=== PATIENT | male | born 2000 | race Caucasian/White ===

== ENCOUNTER 2022-07-23 11:40 | Emergency (ER) | payer BC, SELFPAY ==
[2022-07-23 11:40] VITALS: BP 147/85; PULSE 94; RESP 18; TEMP 36.8; O2SAT 96; BMI 43.0
--- NOTE | 2022-07-23 12:23 | EXP.UTC ---
Discharge Plan Disposition Patient Disposition: Home, Self-Care Condition: Good Prescriptions Prescriptions: New cephalexin [cephalexin] 500 mg capsule 500 mg PO Q6H 10 Days Qty: 40 0RF methylprednisolone 4 mg Tablets,Dose Pack 4 mg PO DIRECTED Qty: 21 0RF triamcinolone acetonide 0.025 % cream 1 applic topical BID PRN (Reason: itching) Qty: 80 0RF No Action ondansetron HCl 4 mg tablet 4 mg PO TID PRN (Reason: nausea and vomiting) 5 Days Qty: 15 0RF Referrals Follow up/Referrals: Provider,Referral, MD [Primary Care Provider] - See instructions Activity Restrictions/Add. Instructions Additional Instructions/Restrictions: Avoid contact with the offending substance (poison katlyn). Don't put the topical steroids (triamcinolone) on your face or your groin. Follow up with your regular doctor. GO TO THE ER FOR ANY WORSENING SYMPTOMS OR CONCERNS Clinical Impressions Clinical Impression: Contact dermatitis, Cellulitis, Sinusitis Instructions Patient Instructions: Sinusitis, Cellulitis, DI for Sinusitis Discharge ED Provider: Ortega Villegas [facility] [place] General Stated complaint: Congestion, rash on LT arm and stomach Mode of Arrival: Ambulatory Source of Information: Patient Limitations: No Limitations Time Seen by Provider: 07/23/22 12:25 Description of Symptoms (Recalled from Triage Doc. by RN): c/o left arm rash and lower abdomen rash for one week with a possible sinus infection HEENT Symptoms (Recalled from RN notes): Yes Resp Symptoms (Recalled from RN notes): No Skin Symptoms (Recalled from RN notes): Yes MS Symptoms (Recalled from RN notes): No Functional Status (Recalled from RN notes): na History of Present Illness Provider Complaint: He states that he has 2 different complaints today. He is having sinus congestion and a sore throat for the past 2 days. He also has a poison katlyn rash on his bilateral arms and abdomen. This began several days ago and seems to be getting worse. He denies any fever or chills. Related Data Previous Rx's Medication Instructions Recorded ondansetron HCl 4 mg tablet 4 mg PO TID PRN nausea and 01/06/19 vomiting 5 days #15 tabs cephalexin 500 mg capsule 500 mg PO Q6H 10 days #40 caps 07/23/22 methylprednisolone 4 mg tablets in 4 mg PO DIRECTED #21 tabs 07/23/22 a dose pack triamcinolone acetonide 0.025 % 1 applic topical BID PRN itching 07/23/22 topical cream #80 grams Allergies Allergy/AdvReac Type Severity Reaction Status Date / Time Penicillins Allergy Verified 01/06/19 19:53 Worker's Comp Is this a Worker's Comp case?: No PFSH PFSH Social History Smoking Status: Never smoker alcohol intake: never current occupational status: employed Travel in the last 8 weeks: None household members: family housing: house ROS Obtained: Yes All systems reviewed & no additional complaints except as documented Constitutional Constitutional: Reports system reviewed and no additional complaints, except as documented, Denies chills and Denies fever(s) Eyes Eyes: Denies eye discharge ENT Ears, Nose, Mouth, and Throat: Denies dysphagia, Denies sore throat and Denies throat swelling Cardiovascular Cardiovascular: Denies chest pain and Denies dyspnea Respiratory Respiratory: Denies chest congestion, Denies cough and Denies dyspnea Gastrointestinal Gastrointestingal: Denies abdominal pain, constipation, diarrhea, dysphagia, nausea or vomiting Musculoskeletal Musculoskeletal: Denies arthralgias Integumentary/Breasts Skin/Breast: Reports rash Neurologic Neurologic: Denies paresthesias Allergic/Immunologic Allergic/Immunologic: Denies throat swelling Physical Exam General General appearance: alert and in no apparent distress Head Head exam: atraumatic, normocephalic and normal inspection Eye Eye exam: Present normal appearance, PERRL and EOMI ENT ENT exam: Present normal exam, n
[2022-07-23 12:33] VITALS: BP 147/85; PULSE 94; RESP 18; TEMP 36.8; O2SAT 96
== END 2022-07-23 12:34 | disposition home or self-care (01) ==
PROVIDERS: Emergency Provider Nurse Practitioner Family
DX: L03.311 Cellulitis of abdominal wall; J01.90 Acute sinusitis, unspecified
CPT/HCPCS: 99212; G0463

== ENCOUNTER 2022-11-17 12:34 | Emergency (ER) | payer BC, SELFPAY ==
--- NOTE | 2022-11-17 12:56 | EXP.UTC ---
Discharge Plan Disposition Patient Disposition: Home, Self-Care Condition: Good Prescriptions Prescriptions: New azithromycin [Zithromax] 250 mg tablet 250 mg PO UD DOSE PK Qty: 6 0RF Rx Instructions: Take two (2) tablets today, then one (1) tablet days #2 thru #5 benzonatate [benzonatate] 100 mg capsule 100 mg PO TIDP PRN (Reason: Cough) Qty: 30 0RF methylprednisolone 4 mg Tablets,Dose Pack 4 mg PO DIRECTED Qty: 21 0RF Referrals Follow up/Referrals: Provider,Referral, MD [Primary Care Provider] - See instructions Activity Restrictions/Add. Instructions Additional Instructions/Restrictions: Drink plenty of fluids. Take tylenol or ibuprofen for pain or fever. Take the medications as directed. Follow up with your regular doctor. GO TO THE ER FOR ANY WORSENING SYMPTOMS Clinical Impressions Clinical Impression: Sinusitis Instructions Patient Instructions: Sinusitis, DI for Sinusitis Discharge ED Provider: Ortega Villegas [facility] [place] General Stated complaint: Congestion, headache, sore throat, fever Time Seen by Provider: 11/17/22 12:56 History of Present Illness Provider Complaint: He states that for the past 5 days he has had sore throat, sinus congestion and a cough. Related Data Previous Rx's Medication Instructions Recorded azithromycin 250 mg tablet 250 mg PO UD DOSE PK #6 tabs 11/17/22 (Zithromax) benzonatate 100 mg capsule 100 mg PO TIDP PRN Cough #30 caps 11/17/22 methylprednisolone 4 mg tablets in 4 mg PO DIRECTED #21 tabs 11/17/22 a dose pack Allergies Allergy/AdvReac Type Severity Reaction Status Date / Time Penicillins Allergy Verified 11/17/22 13:12 [facility] Disclaimer: The information contained in this section may have been updated after the patient was seen, as this information can be updated by other users. Social History Smoking Status: Never smoker alcohol intake: never current occupational status: employed Travel in the last 8 weeks: None household members: family housing: house ROS Obtained: Yes All systems reviewed & no additional complaints except as documented Constitutional Constitutional: Denies chills and Denies fever(s) Eyes Eyes: Denies eye discharge ENT Ears, Nose, Mouth, and Throat: Reports as per HPI Cardiovascular Cardiovascular: Denies chest pain Respiratory Respiratory: Denies chest congestion and Reports cough Gastrointestinal Gastrointestingal: Reports nausea; Denies abdominal pain, constipation, cramping, diarrhea or vomiting Musculoskeletal Musculoskeletal: Denies arthralgias Integumentary/Breasts Skin/Breast: Denies rash Neurologic Neurologic: Denies paresthesias Physical Exam General General appearance: alert and in no apparent distress Eye Eye exam: Present normal appearance, PERRL and EOMI ENT ENT exam: Present mucous membranes moist and normal external ear exam Expanded ENT Exam External ear exam: Present normal external inspection TM/Canal exam: Bilateral TM: erythema and bulging Nose exam: Absent sinus tenderness Nasal speculum exam: Bilateral: normal Mouth exam: Present normal external inspection; Absent drooling Teeth exam: Present normal inspection Throat exam: Present tonsillar erythema and tonsillomegaly Neck Neck exam: Present normal inspection, full ROM and trachea midline; Absent tenderness, lymphadenopathy or thyromegaly Chest Chest inspection: Present normal inspection and symmetric chest wall rise; Absent tenderness or rash Respiratory Respiratory exam: Present normal lung sounds bilaterally; Absent respiratory distress, wheezes, stridor or accessory muscle use Cardiovascular Cardiovascular exam: Present regular rate, normal rhythm and normal heart sounds Abdominal Exam Abdominal exam: Present soft; Absent distention, tenderness, guarding, rebound or rigidity Extremities Exam Extremities exam: Present normal inspecti
[2022-11-17 13:00] VITALS: BP 140/93; PULSE 98; RESP 20; TEMP 37.4; O2SAT 95; BMI 40.8
[2022-11-17 13:12] LABS: UTC Strep Screen (Rapid) Negative (Negative)
[2022-11-17 13:13] LABS: UTC Influenza A Antigen Negative (Negative); UTC Influenza B Antigen Negative (Negative)
[2022-11-17 13:29] VITALS: BP 140/93; PULSE 98; RESP 19; TEMP 37.4; O2SAT 95
== END 2022-11-17 13:29 | disposition home or self-care (01) ==
PROVIDERS: Emergency Provider Nurse Practitioner Family
DX: J32.9 Chronic sinusitis, unspecified (principal)
CPT/HCPCS: 87804; 87880; 99212; 99213; G0463

== ENCOUNTER 2023-07-28 11:14 | Emergency (ER) | payer BC, SELFPAY ==
[2023-07-28 12:00] VITALS: BP 146/92; PULSE 89; RESP 18; TEMP 36.5; O2SAT 98; BMI 41.7
--- NOTE | 2023-07-28 12:04 | EXP.UTC ---
Discharge Plan Disposition Patient Disposition: Home, Self-Care Condition: Good Prescriptions Prescriptions: New sulfamethoxazole-trimethoprim [Bactrim DS] 800-160 mg tablet 1 tab PO BID Qty: 20 0RF cephalexin 500 mg capsule 500 mg PO QID 10 Days Qty: 40 0RF mupirocin 2 % ointment 1 applic topical TID Qty: 22 0RF Rx Instructions: apply to wound on leg triamcinolone acetonide 0.1 % ointment 1 applic topical TID Qty: 30 0RF Rx Instructions: apply to rash on arms and neck Referrals Follow up/Referrals: Provider,Referral, MD [Primary Care Provider] - See instructions Activity Restrictions/Add. Instructions Additional Instructions/Restrictions: Take medication as prescribed Follow up with your Family Doctor if no improvement or any worsening of rash Follow up immediately i9f you have any fevers, streaks or worsening of symptoms Straight to ER if any life threatening symptoms Oatmeal bathes may help to dry and clear the rash Over the counter Benadryl may help with itching Use Triamcinolone on arms, neck and back as directed but do not apply to face Straight to ER if any life threatening symptoms Do not wear boots if you can avoid it until areas are healed Clinical Impressions Clinical Impression: Contact dermatitis Qualifiers: Contact dermatitis type: unspecified Contact dermatitis trigger: unspecified trigger Qualified Code(s): L25.9 - Unspecified contact dermatitis, unspecified cause Cellulitis Qualifiers: Site of cellulitis: unspecified site Qualified Code(s): L03.90 - Cellulitis, unspecified Instructions Patient Instructions: DI for Cellulitis -- Adult, Contact Dermatitis, Cellulitis Discharge ED Provider: Fransisca Robison [facility] General Stated complaint: rash, open would left leg Mode of Arrival: Ambulatory Source of Information: Patient Limitations: No Limitations Time Seen by Provider: 07/28/23 12:04 Description of Symptoms (Recalled from Triage Doc. by RN): Rash all over, and wound on leg not healing. HEENT Symptoms (Recalled from RN notes): Yes Resp Symptoms (Recalled from RN notes): No Skin Symptoms (Recalled from RN notes): No MS Symptoms (Recalled from RN notes): No Functional Status (Recalled from RN notes): n/a History of Present Illness Provider Complaint: Patient state that he has two complaints one he wore a new shirt a few days ago and started breaking out on his neck, face, and arms States that he has tried OTC benadryl but it hasnt helped much States that today it was itching worse and he was having issues with wound on his left lower leg where his boot rubs no being able to get it to heal States that he will get it almost healed and then it will open back up Related Data Previous Rx's Medication Instructions Recorded cephalexin 500 mg capsule 500 mg PO QID 10 days #40 caps 07/28/23 mupirocin 2 % topical ointment 1 applic topical TID #22 grams 07/28/23 sulfamethoxazole 800 1 tab PO BID #20 tabs 07/28/23 mg-trimethoprim 160 mg tablet (Bactrim DS) triamcinolone acetonide 0.1 % 1 applic topical TID #30 grams 07/28/23 topical ointment Allergies Allergy/AdvReac Type Severity Reaction Status Date / Time Penicillins Allergy Verified 07/28/23 12:00 Worker's Comp Is this a Worker's Comp case?: No [facility] Disclaimer: The information contained in this section may have been updated after the patient was seen, as this information can be updated by other users. Social History Smoking Status: Never smoker alcohol intake: never current occupational status: employed Travel in the last 8 weeks: None household members: family housing: house ROS Obtained: Yes All systems reviewed & no additional complaints except as documented and Yes Systems reviewed as appropriate & no additional complaints except as documented ENT Ears, Nose, Mouth, and Throat: Reports system reviewed and no addit
[2023-07-28 12:44] VITALS: BP 146/92; PULSE 89; RESP 18; TEMP 36.5; O2SAT 98
== END 2023-07-28 12:44 | disposition home or self-care (01) ==
PROVIDERS: Emergency Provider Nurse Practitioner
DX: L03.116 Cellulitis of left lower limb (principal); L25.9 Unspecified contact dermatitis, unspecified cause
CPT/HCPCS: 96372; 99212; 99214; G0463